=== PATIENT | female | born 1945 | race Caucasian/White ===

== ENCOUNTER 2021-03-04 19:24 | Emergency (ER) | payer OTHER ==
[2021-03-04 19:32] VITALS: TEMP 97.7; BMI 31.1
[2021-03-04 21:40] VITALS: BP 127/52; PULSE 63
== END 2021-03-04 22:47 | disposition home or self-care (01) ==
LOC: JER 19:24
DX: K64.9 Unspecified hemorrhoids (principal); L29.0 Pruritus ani
CPT/HCPCS: 99283-25